=== PATIENT | male | born 1995 | race American Indian/Alaskan Native ===

== ENCOUNTER 2018-11-06 16:38 | Emergency (ER) | payer SELFPAY ==
[2018-11-06 16:58] VITALS: BP 134/75
[2018-11-06] MEDS ORDERED: TRIMOX PO ONE (17:55)
[2018-11-06] MEDS ORDERED: NORCO 5/325 PO ONE (17:56)
--- NOTE | 2018-11-06 17:56 | Emergency Department Report ---
Abscess Boil HPI - HPI Chief Complaint: Skin/Abscess/Foreign Body Stated Complaint: BOIL UNDER EYE Time Seen by Provider: 11/06/18 17:55 Duration: >1 Week Location: Other (FACE) Severity: Mild History: Yes Pain, No Fever, No Purulent Drainage (HARD), No Numbness, No Foreign Body, No Previous History, No Insect Bite HPI: 23 YO AA MALE WITH ACNE THAT HAS FORMED BOIL/ABSCESS ON L SIDE OF FACE- JUST UNDER L EYE Home Medications: Previous Rx's Medication Instructions Recorded Last Taken Type Amoxicillin 500 mg PO BID #20 capsule 11/06/18 Unknown Rx Allergies/Adverse Reactions: Allergies Allergy/AdvReac Type Severity Reaction Status Date / Time No Known Allergies Allergy Unverified 03/13/16 16:01 ED Review of Systems ROS: Stated complaint: BOIL UNDER EYE Other details as noted in HPI Comment: All other systems reviewed and negative Constitutional: denies: chills Eyes: denies: eye pain ENT: denies: throat pain Respiratory: denies: orthopnea Cardiovascular: denies: dyspnea on exertion Endocrine: denies: intolerance to cold Gastrointestinal: denies: nausea Genitourinary: denies: dysuria Musculoskeletal: denies: back pain Skin: as per HPI, lesions Neurological: denies: headache Psychiatric: denies: anxiety Hematological/Lymphatic: denies: easy bleeding ED Past Medical Hx - Past Medical History Previous Medical History?: No - Surgical History Past Surgical History?: No - Social History Smoking Status: Never Smoker Substance Use Type: Alcohol - Medications Home Medications: Home Medications Medication Instructions Recorded Confirmed Last Taken Type Amoxicillin 500 mg PO BID #20 capsule 11/06/18 Unknown Rx ED Abscess Boil Physical Exam - Exam General: Vital signs noted. No distress. Alert and acting appropriately. Size: 3 cm Exam: Yes Tenderness, Yes Surrounding Cellulites/Erythema, Yes Normal Neurologic Exam, Yes Normal Circulation, No Fluctuance (HARD), No Lymphangitis, No Crepitation, No Heart Murmur ED Course Vital Signs 11/06/18 16:55 Temperature 98.3 F Pulse Rate 92 H Respiratory 18 Rate Blood Pressure 134/75 O2 Sat by Pulse 97 Oximetry Critical care attestation.: If time is entered above; I have spent that time in minutes in the direct care of this critically ill patient, excluding procedure time. ED Medical Decision Making - Medical Decision Making FIRM ON EXAM NOT READY TO RUPTURE GIVEN ON FACE AND HARD ON PALP- NOT I/D WILL DO CONSERVATIVE TX WITH ANBX AND EPSOM SALTS PT EDUCATED ON POC PCP AND DERM FOLLOW UP PROVIDING PT IS NON TOXIC, AMBULATORY AND TAKING PO MEDICATED IN ER FOR PAIN AND W AMOX - Differential Diagnosis ACNE ABSCESS OF FACE ED Disposition Clinical Impression: Acne, Abscess Disposition: TO HOME OR SELFCARE Is pt being admited?: No Does the pt Need Aspirin: No Condition: Stable Instructions: Abscess (ED) Additional Instructions: WARM EPSOM SALT SOAKS AT LEAST 3 TIMES PER DAY FOR AT LEAST 20 MINUTES YOU WANT THIS TO SOFTEN TO THE POINT THAT IT WILL POP WE DO NOT CUT THESE ON THE FACE BECAUSE OF SCARING ANTIBIOTICS ORDERED MOTRIN OR TYLENOL FOR PAIN OR FEVER ONCE THIS POPS CONTINUE EPSOM SALTS TO BE SURE ALL OF THE PURULENT DRAINAGE COMES OUT YOU WILL BE PRONE TO THESE SO GOOD SKIN CARE AND EXFOLIATING IS GOING TO BE IMPORTANT MOVING FORWARD A CONFERENCE SERVICES DIRECTOR MAY BE HELPFUL REFERRAL BELOW PCP REFERRAL ALSO GIVEN BELOW Prescriptions: Amoxicillin 500 mg PO BID #20 capsule Referrals: PRIMARY MD SPIKE [Primary Care Provider] - 3-5 Days ANDRY PRECIADO MD [Staff Physician] - 3-5 Days EMRE CASILLAS MD [Referring] - 3-5 Days Time of Disposition: 17:57
== END 2018-11-06 18:49 | disposition home or self-care (01) ==
LOC: ED 16:38
DX: L70.9 Acne, unspecified (principal); L02.01 Cutaneous abscess of face
CPT/HCPCS: 99282

== ENCOUNTER 2019-10-07 09:00 | Emergency (ER) | payer SELFPAY ==
[2019-10-07 09:07] VITALS: BP 126/66
[2019-10-07] MEDS ORDERED: LIDOCAINE (1%) 10 MG/1 ML VIAL 20 ML MDV INFILTRATI ONE (10:17)
--- NOTE | 2019-10-07 10:32 | Emergency Department Report ---
ED General Adult HPI - General Chief complaint: Skin/Abscess/Foreign Body Stated complaint: LFT EYE CYST ON FACE Time Seen by Provider: 10/07/19 09:46 Source: patient Mode of arrival: Ambulatory Limitations: No Limitations - History of Present Illness Initial comments: 34-year-old -[place]namese male patient complains of left facial abscess and swelling 5 days. She states pain and swelling or worsening and now causing his left eye to swell. He denies any vision changes or eye pain or pain with eye movements. Patient denies any fever/chills/sweats or dental pain. He states he was seen and treated for an abscess in the same area in October of this year. -: Sudden Location: face Severity scale (0 -10): 8 Quality: aching, constant Improves with: none Associated Symptoms: denies other symptoms - Related Data Previous Rx's Medication Instructions Recorded Last Taken Type Amoxicillin 500 mg PO BID #20 capsule 11/06/18 Unknown Rx Clindamycin [Clindamycin CAP] 300 mg PO Q6H 10 Days #40 capsule 10/07/19 Unknown Rx Ibuprofen [Motrin 800 MG tab] 800 mg PO Q8HR PRN #21 tablet 10/07/19 Unknown Rx Mupirocin [Bactroban 2% OINT] 1 applic TP TID 7 Days #1 tube 10/07/19 Unknown Rx traMADoL [Ultram 50 MG tab] 50 mg PO Q4HR PRN #8 tablet 10/07/19 Unknown Rx Allergies Allergy/AdvReac Type Severity Reaction Status Date / Time No Known Allergies Allergy Unverified 03/13/16 16:01 ED Review of Systems ROS: Stated complaint: LFT EYE CYST ON FACE Other details as noted in HPI Comment: All other systems reviewed and negative Skin: as per HPI ED Past Medical Hx - Past Medical History Previous Medical History?: No - Surgical History Past Surgical History?: No - Social History Smoking Status: Never Smoker Substance Use Type: None - Medications Home Medications: Home Medications Medication Instructions Recorded Confirmed Last Taken Type Amoxicillin 500 mg PO BID #20 capsule 11/06/18 Unknown Rx Clindamycin [Clindamycin CAP] 300 mg PO Q6H 10 Days #40 capsule 10/07/19 Unknown Rx Ibuprofen [Motrin 800 MG tab] 800 mg PO Q8HR PRN #21 tablet 10/07/19 Unknown Rx Mupirocin [Bactroban 2% OINT] 1 applic TP TID 7 Days #1 tube 10/07/19 Unknown Rx traMADoL [Ultram 50 MG tab] 50 mg PO Q4HR PRN #8 tablet 10/07/19 Unknown Rx ED Physical Exam - General Limitations: No Limitations General appearance: alert, in no apparent distress - Head Head exam: Present: atraumatic, normocephalic - Eye Eye exam: Present: PERRL, EOMI, periorbital swelling (lower portion of left eye without erythema, drainage, or tenderness to palpation), other (no pain noted with EOMIs) - ENT ENT exam: Present: mucous membranes moist - Neck Neck exam: Present: normal inspection, full ROM. Absent: tenderness, lymphadenopathy - Respiratory Respiratory exam: Present: normal lung sounds bilaterally - Skin Skin exam: Present: warm, dry, intact, erythema (maul left facial abscess noted with approximately 3 cm of surrounding erythema and tenderness to palpation. No active drainage noted). Absent: rash ED Course Vital Signs 10/07/19 10/07/19 09:05 09:31 Temperature 98.5 F Pulse Rate 70 Respiratory 18 20 Rate Blood Pressure 126/66 O2 Sat by Pulse 95 Oximetry - I & D face Type of Procedure: Simple Site: left face Blade Size: 11 I & D Procedure: betadine prep Progress: Lidocaine 1% used. Copious purulent drainage. Minimal bleeding. On fourth inch packing placed. Patient tolerated procedure well without any immediate complications. ED Medical Decision Making - Medical Decision Making 24-year-old male patient presents for left facial abscess with swelling of the face. Denies any fever, vision changes, or pain with eye movements. Abscess was incised and drained. No immediate complications occurred following procedure. He should to return in 2 days for wound recheck, sooner if worsening symptoms. Discussed wound care and strict return precautions in detail with patient who states understanding. Critical care attestation.: If time is entered above; I have spent that time in minutes in the direct care of this critically ill patient, excluding procedure time. ED Disposition Clinical Impression: Facial abscess Disposition: - TO HOME OR SELFCARE Is pt being admited?: No Condition: Stable Instructions: Abscess Incision and Drainage (ED) Additional Instructions: Follow-up in 2 days for recheck of abscess here in the emergency department. If you experience any new or worsening symptoms seek immediate emergency care Prescriptions: Mupirocin [Bactroban 2% OINT] 1 applic TP TID 7 Days #1 tube Clindamycin [Clindamycin CAP] 300 mg PO Q6H 10 Days #40 capsule Ibuprofen [Motrin 800 MG tab] 800 mg PO Q8HR PRN #21 tablet PRN Reason: Pain, Moderate (4-6) traMADoL [Ultram 50 MG tab] 50 mg PO Q4HR PRN #8 tablet PRN Reason: Pain , Severe (7-10) Referrals: PRIMARY CARE,MD [Primary Care Provider] - 3-5 Days Forms: Work/School Release Form(ED)
== END 2019-10-07 12:49 | disposition home or self-care (01) ==
LOC: ED 09:00
DX: L02.01 Cutaneous abscess of face (principal); Z79.899 Other long term (current) drug therapy
CPT/HCPCS: 87116

== ENCOUNTER 2019-10-09 09:19 | Emergency (ER) | payer SELFPAY ==
[2019-10-09 09:32] VITALS: BP 137/66
--- NOTE | 2019-10-09 09:45 | Emergency Department Report ---
Chief Complaint: Skin/Abscess/Foreign Body Stated Complaint: FOLLOW UP (LT EYE) Time Seen by Provider: 10/09/19 09:44 - HPI History of Present Illness: I/d here 2 days ago - ROS Review of Systems: no complaints - Exam Vital Signs: Vital Signs 10/09/19 09:25 Temperature 98.3 F Pulse Rate 71 Respiratory 18 Rate Blood Pressure 137/66 O2 Sat by Pulse 95 Oximetry Physical Exam: healing well taking meds MSE screening note: Focused history and physical exam performed. Due to findings the following was ordered: dc home with no life threat Patient discussed with doctor:: YUMIKO BORGES ED Medical Decision Making - Medical Decision Making no life threat ED Disposition for MSE Clinical Impression: Facial abscess Disposition: Z- MED SCREENING EXAM-LEFT Is pt being admited?: No Does the pt Need Aspirin: No Condition: Stable Referrals: ASHISH CEDILLO MD [Staff Physician] - 3-5 Days Forms: Work/School Release Form(ED) Time of Disposition: 09:44
== END 2019-10-09 09:45 | disposition left against medical advice (07) ==
LOC: ED 09:19
DX: L02.01 Cutaneous abscess of face (principal)
CPT/HCPCS: 99281

== ENCOUNTER 2020-08-21 19:30 | Emergency (ER) | payer SELFPAY ==
[2020-08-21 21:25] LABS: Basophils # (Auto) 0.1 K/mm3 (0.0-0.1); Eosinophils % (Auto) 0.2 % (0.0-4.3); Hematocrit 46.3 % (35.5-45.6); Hemoglobin 16.3 gm/dl (11.8-15.2); Lymphocytes # (Auto) 1.3 K/mm3 (1.2-5.4); Lymphocytes % (Auto) 14.1 % (13.4-35.0); Mean Corpuscular HGB Conc 35 % (32-34); Mean Corpuscular Volume 88 fl (84-94); Monocytes # (Auto) 0.7 K/mm3 (0.0-0.8); Monocytes % (Auto) 7.9 % (0.0-7.3); Red Blood Count 5.28 M/mm3 (3.65-5.03)
[2020-08-21] MEDS ORDERED: ACETAMINOPHEN 500 MG TAB PO ONE (21:30)
[2020-08-21] MEDS ORDERED: ONDANSETRON 4 MG/2 ML INJ IV ONE (21:30)
[2020-08-21 21:33] LABS: Bilirubin,Urine NEG (Negative); Blood,Urine NEG (Negative); Color,Urine Amber (Yellow); Mucus,Urine 3+ /HPF
[2020-08-21 21:34] LABS: Protein,Urine >500 mg/dL (Negative)
[2020-08-21 21:35] LABS: Platelet Count 267 K/mm3 (140-440)
--- NOTE | 2020-08-21 21:37 | Emergency Department Report ---
ED General Adult HPI - General Chief complaint: Nausea/Vomiting/Diarrhea Stated complaint: STOMACH VIRUS Time Seen by Provider: 08/21/20 21:04 Source: patient Mode of arrival: Ambulatory Limitations: No Limitations - History of Present Illness Initial comments: Patient is a 24-year-old male who presents for fevers chills nausea vomiting abdominal pain x3 days. Patient states unable to tolerate p.o. However he has begun to take tolerate p.o. liquids since 6:00 today. Patient does endorse productive cough clear thick, he denies history of asthma or bronchitis. Patient denies suspicious travel or contacts. Symptoms are exacerbated by p.o. intake and activity. Symptoms are relieved by nothing tried. Pain is described as generalized 5/10 aching all over. - Related Data Previous Rx's Medication Instructions Recorded Last Taken Type Amoxicillin 500 mg PO BID #20 capsule 11/06/18 Unknown Rx Clindamycin [Clindamycin CAP] 300 mg PO Q6H 10 Days #40 capsule 10/07/19 Unknown Rx Ibuprofen [Motrin 800 MG tab] 800 mg PO Q8HR PRN #21 tablet 10/07/19 Unknown Rx Mupirocin [Bactroban 2% OINT] 1 applic TP TID 7 Days #1 tube 10/07/19 Unknown Rx traMADoL [Ultram 50 MG tab] 50 mg PO Q4HR PRN #8 tablet 10/07/19 Unknown Rx Acetaminophen [Acetaminophen TAB] 1,000 mg PO Q6HR PRN #30 tablet 08/22/20 Unknown Rx Azithromycin 500 mg PO DAILY #5 tablet 08/22/20 Unknown Rx Allergies Allergy/AdvReac Type Severity Reaction Status Date / Time No Known Allergies Allergy Unverified 03/13/16 16:01 ED Review of Systems ROS: Stated complaint: STOMACH VIRUS Other details as noted in HPI Constitutional: denies: chills, fever Eyes: denies: eye pain, eye discharge, vision change ENT: denies: ear pain, throat pain Respiratory: cough. denies: shortness of breath, wheezing Cardiovascular: denies: chest pain, palpitations Endocrine: no symptoms reported Gastrointestinal: abdominal pain, nausea, vomiting, diarrhea. denies: constipation, melena Genitourinary: denies: urgency, dysuria Musculoskeletal: back pain. denies: joint swelling, arthralgia Skin: denies: rash, lesions Neurological: denies: headache, weakness, paresthesias, vertigo Psychiatric: anxiety. denies: depression Hematological/Lymphatic: denies: easy bleeding, easy bruising ED Past Medical Hx - Past Medical History Previous Medical History?: No - Surgical History Past Surgical History?: No - Social History Smoking Status: Never Smoker Substance Use Type: None - Medications Home Medications: Home Medications Medication Instructions Recorded Confirmed Last Taken Type Amoxicillin 500 mg PO BID #20 capsule 11/06/18 Unknown Rx Clindamycin [Clindamycin CAP] 300 mg PO Q6H 10 Days #40 capsule 10/07/19 Unknown Rx Ibuprofen [Motrin 800 MG tab] 800 mg PO Q8HR PRN #21 tablet 10/07/19 Unknown Rx Mupirocin [Bactroban 2% OINT] 1 applic TP TID 7 Days #1 tube 10/07/19 Unknown Rx traMADoL [Ultram 50 MG tab] 50 mg PO Q4HR PRN #8 tablet 10/07/19 Unknown Rx Acetaminophen [Acetaminophen TAB] 1,000 mg PO Q6HR PRN #30 tablet 08/22/20 Unknown Rx Azithromycin 500 mg PO DAILY #5 tablet 08/22/20 Unknown Rx ED Physical Exam - General Limitations: No Limitations General appearance: alert, in no apparent distress, anxious - Head Head exam: Present: atraumatic, normocephalic - Eye Eye exam: Present: normal appearance - ENT ENT exam: Present: mucous membranes moist - Neck Neck exam: Present: normal inspection, full ROM. Absent: tenderness, lymph adenopathy - Respiratory Respiratory exam: Present: normal lung sounds bilaterally. Absent: respiratory distress, wheezes, rales, rhonchi, stridor, chest wall tenderness - Cardiovascular Cardiovascular Exam: Present: normal rhythm, tachycardia, normal heart sounds. Absent: systolic murmur, diastolic murmur, rubs, gallop - GI/Abdominal GI/Abdominal exam: Present: soft, normal bowel sounds. Absent: distended, tenderness, guarding, rebound, rigid, bruit, hernia - Rectal Rectal exam: Present: deferred - Extremities Exam Extremities exam: Present: normal inspection, full ROM - Back Exam Back exam: Present: normal inspection, full ROM. Absent: tenderness, CVA tenderness (R), CVA tenderness (L) - Neurological Exam Neurological exam: Present: alert, oriented X3, CN II-XII intact, normal gait, reflexes normal. Absent: motor sensory deficit - Psychiatric Psychiatric exam: Present: normal affect, normal mood - Skin Skin exam: Present: warm, dry, intact, normal color. Absent: rash ED Course Vital Signs 08/21/20 08/21/20 20:41 22:58 Temperature 102.7 F H 101 F H Pulse Rate 121 H 99 H Respiratory 18 18 Rate Blood Pressure 139/60 Blood Pressure 126/74 [Left] O2 Sat by Pulse 92 98 Oximetry ED Medical Decision Making - Lab Data Result diagrams: 08/21/20 21:00 08/21/20 21:00 Labs 08/21/20 08/21/20 08/21/20 21:00 21:00 21:09 WBC 9.3 RBC 5.28 H Hgb 16.3 H Hct 46.3 H MCV 88 MCH 31 MCHC 35 H RDW 12.0 L Plt Count 267 Lymph % (Auto) 14.1 [place] % (Auto) 7.9 H Eos % (Auto) 0.2 Baso % (Auto) 1.0 Lymph # (Auto) 1.3 [place] # (Auto) 0.7 Eos # (Auto) 0.0 Baso # (Auto) 0.1 Seg Neutrophils % 76.8 H Seg Neutrophils # 7.1 Sodium 133 L Potassium 3.5 L Chloride 94.7 L Carbon Dioxide 26 Anion Gap 16 BUN 13 Creatinine 0.9 Estimated GFR > 60 BUN/Creatinine Ratio 14 Glucose 112 H Lactic Acid Calcium 9.1 Total Bilirubin 1.40 H AST 83 H ALT 134 H Alkaline Phosphatase 65 Total Protein 8.1 Albumin 4.3 Albumin/Globulin Ratio 1.1 Lipase 21 Urine Color [place] Urine Turbidity Clear Urine pH 6.0 Ur Specific [place] 1.035 H Urine Protein >500 Urine Glucose (UA) Neg Urine Ketones Neg Urine Blood Neg Urine Nitrite Neg Urine Bilirubin Neg Urine Urobilinogen 4.0 Ur Leukocyte Esterase Neg Urine WBC (Auto) 2.0 Urine RBC (Auto) 6.0 U Epithel Cells (Auto) < 1.0 Urine Mucus 3+ 08/21/20 21:39 WBC RBC Hgb Hct MCV MCH MCHC RDW Plt Count Lymph % (Auto) [place] % (Auto) Eos % (Auto) Baso % (Auto) Lymph # (Auto) [place] # (Auto) Eos # (Auto) Baso # (Auto) Seg Neutrophils % Seg Neutrophils # Sodium Potassium Chloride Carbon Dioxide Anion Gap BUN Creatinine Estimated GFR BUN/Creatinine Ratio Glucose Lactic Acid 0.80 Calcium Total Bilirubin AST ALT Alkaline Phosphatase Total Protein Albumin Albumin/Globulin Ratio Lipase Urine Color Urine Turbidity Urine pH Ur Specific [place] Urine Protein Urine Glucose (UA) Urine Ketones Urine Blood Urine Nitrite Urine Bilirubin Urine Urobilinogen Ur Leukocyte Esterase Urine WBC (Auto) Urine RBC (Auto) U Epithel Cells (Auto) Urine Mucus - Radiology Data Radiology results: report reviewed, image reviewed Findings Reporting MD: Shashank Pérez Dictation Time: August 21, 2020 21:07 Operating Engineer: Not available Service Or Work Dispatcher Chief Date: CHEST 1 VIEW INDICATION: cough fever COMPARISON: None FINDINGS: Support devices: None Heart: Normal Lungs/Pleura: No acute pulmonary or pleural findings. IMPRESSION: 1. No acute disease. Signer Name: Shashank Pérez MD Signed: 08/21/2020 9:07 PM Workstation Name: [id number] - Medical Decision Making Symptoms are improved fevers resolved, patient currently tolerating p.o. intake without nausea vomiting. Have discussed PUI precautions patient will isolate and self monitor for the next 10 days first to see CDC guidelines. Return to emergency should symptoms worsen we DC'd home with prescriptions. Patient verbalized agreement and understanding with discharge plan. Patient DC'd home in stable condition at this time. Critical care attestation.: If time is entered above; I have spent that time in minutes in the direct care of this critically ill patient, excluding procedure time. ED Disposition Clinical Impression: Person under investigation for COVID-19 Nausea and vomiting Qualifiers: Vomiting type: unspecified Vomiting Intractability: non-intractable Qualified Code(s): R11.2 - Nausea with vomiting, unspecified Disposition: DC-01 TO HOME OR SELFCARE Is pt being admited?: No Does the pt Need Aspirin: No Condition: Stable Instructions: Acute Nausea and Vomiting (ED), COVID-19 Additional Instructions: Self Quarantine for 10-14 days as directed, self monitor for symptoms , take over the counter : Vit D, Vit C, Vit E, and a aspirin per day. Return to emergency if symptoms worsen. Prescriptions: Acetaminophen [Acetaminophen TAB] 1,000 mg PO Q6HR PRN #30 tablet PRN Reason: pain fever Azithromycin 500 mg PO DAILY #5 tablet Referrals: HIGINIO SHAH MD [Staff Physician] - 7-10 days Forms: Work/School Release Form(ED) Time of Disposition: 00:09
[2020-08-21] MEDS ORDERED: SODIUM CHLORIDE 0.9% 1000 ML 1,000 ML IV ONE (21:42)
[2020-08-21 21:49] LABS: Alanine Aminotransferase 134 units/L (7-56); Albumin 4.3 g/dL (3.9-5); BUN/Creatinine Ratio 14; Blood Urea Nitrogen 13 mg/dL (9-20); Calcium 9.1 mg/dL (8.4-10.2); Hemolysis Index 6
--- NOTE | 2020-08-21 22:12 | XRay Report ---
CHEST 1 VIEW INDICATION: cough fever COMPARISON: None FINDINGS: Support devices: None Heart: Normal Lungs/Pleura: No acute pulmonary or pleural findings. IMPRESSION: 1. No acute disease. Signer Name: Shashank Pérez MD Signed: 08/21/2020 10:07 PM Workstation Name: [id number]
[2020-08-22 01:20] VITALS: BP 124/84
== END 2020-08-22 01:21 | disposition home or self-care (01) ==
LOC: ED 19:30
DX: R11.2 Nausea with vomiting, unspecified (principal); Z20.828 Contact with and (suspected) exposure to other viral communicable diseases; Z79.1 Long term (current) use of non-steroidal anti-inflammatories (NSAID); Z79.2 Long term (current) use of antibiotics; Z79.899 Other long term (current) drug therapy
CPT/HCPCS: 36415; 71045; 80053; 81001; 82140; 83690; 85025; 87040; 96361; 96374; 99284; J2405; J7030

== ENCOUNTER 2021-01-12 17:27 | Emergency (ER) | payer OTHER ==
[2021-01-12 17:43] VITALS: BP 136/88
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
== END 2021-01-12 20:07 | disposition home or self-care (01) ==
LOC: ED 17:27
DX: S29.019A Strain of muscle and tendon of unspecified wall of thorax, initial encounter (principal); R07.89 Other chest pain; Z79.899 Other long term (current) drug therapy; V49.49XA Driver injured in collision with other motor vehicles in traffic accident, initial encounter; Y92.410 Unspecified street and highway as the place of occurrence of the external cause; Y93.89 Activity, other specified; Y99.8 Other external cause status
CPT/HCPCS: 71046; 72072; 99283